=== PATIENT | female | born 1970 | race Caucasian/White ===

== ENCOUNTER 2021-07-04 08:08 | Outpatient (CLI) | payer BC | END 2021-07-04 08:09 | disposition home or self-care (01) | LOC: CSHULT 08:08 | PROVIDERS: ATTEND Internal Medicine Gastroenterology | DX: K59.00 Constipation, unspecified (principal); K64.9 Unspecified hemorrhoids; R14.0 Abdominal distension (gaseous); Z80.0 Family history of malignant neoplasm of digestive organs; K82.4 Cholesterolosis of gallbladder | CPT/HCPCS: 76700 ==

== ENCOUNTER 2022-04-19 07:29 | Outpatient (CLI) | payer BC ==
[2022-04-19] MEDS ORDERED: Iopamidol 300 61% 100 ML VIAL FS ONE (10:59)
== END 2022-04-19 07:30 | disposition home or self-care (01) ==
LOC: CSHCT 07:29
PROVIDERS: ATTEND Internal Medicine Gastroenterology
DX: K59.01 Slow transit constipation (principal); R16.0 Hepatomegaly, not elsewhere classified; Z80.0 Family history of malignant neoplasm of digestive organs; Z90.710 Acquired absence of both cervix and uterus
CPT/HCPCS: 74177; Q9967